=== PATIENT | female | born 1935 | race Caucasian/White ===

== ENCOUNTER 2016-08-19 08:53 | Emergency (ER) | payer OTHER ==
[~2016-08-19] VITALS: Ht 149.9 cm; Wt 61.3 kg
[~2016-08-19 08:53] MED LIST: EXCEDRIN EXTRA1 EACH PO; LIPITOR10 MG PO; LIPITOR5 MG PO; OXYCODONE HCL5 MG PO; TRAMADOL HCL50 MG PO; ULTRAM50 MG PO; VITAMIN D
[2016-08-19 08:58] VITALS: BP 186/124
[2016-08-19 10:27] LABS: HEMATOCRIT 38.5 % (36.0-46.0); MCH 29.5 PG (29.0-34.0); MCHC 32.2 G/DL (30.0-36.0); MCV 91.7 FL (83-99); MEAN PLAT.VOLUME 11.3 uM^3 (9.5-12.4); PLATELET COUNT 254 K/uL (156-360); RBC DIS.WIDTH-CV 13.4 % (11.8-14.6); RBC DIS.WIDTH-SD 45.3 % (39-53); WHITE BLOOD COUNT 7.6 K/uL (4.1-10.2)
[2016-08-19 10:42] LABS: CHLORIDE 107 mEq/L (99-109); POTASSIUM 4.3 mEq/L (3.7-5.4); SODIUM 140 mEq/L (136-147)
[2016-08-19 10:43] LABS: GLUCOSE 88 mg/dL (70-99)
[2016-08-19 10:45] LABS: ANION GAP 7 MEQ/L (2-14)
[2016-08-19 10:47] LABS: GFR ESTIMATE (CALCULATED) 51 mL/min/
[2016-08-19 10:48] LABS: UREA NITROGEN (BUN) 21 mg/dL (9-23)
[2016-08-19 11:28] LABS: ADD MIUA? YES; BILIRUBIN NEGATIVE; BLOOD NEGATIVE; COLOR YELLOW ((YELLOW)); GLUCOSE (STRIP) NEGATIVE; KETONES NEGATIVE; LEUKOCYTES LARGE; NITRITE NEGATIVE; PROTEIN (STRIP) 30; SPECIFIC GRAVITY 1.012 (1.000-1.030); UROBILINOGEN 0.2 MG/DL (0.2-1.0)
[2016-08-19 11:32] LABS: BACTERIA RARE /HPF; CALCIUM OXALATE CRYSTALS 1+ /HPF; EPITHELIAL CELLS 1+ /HPF; MUCUS TRACE /LPF; UCUL ADDED? NO; WHITE BLOOD CELLS 40-50 /HPF (0-5)
== END 2016-08-19 12:04 | disposition home or self-care (01) ==
LOC: EME 08:53
DX: K59.00 Constipation, unspecified (principal); R10.9 Unspecified abdominal pain; Z87.442 Personal history of urinary calculi
CPT/HCPCS: 74000; 80048; 81003; 85027; 99281; 99283